=== PATIENT | female | born 1945 | race Caucasian/White ===

== ENCOUNTER → 2016-10-07 | Outpatient (CLI) | payer MEDICARE, BC | LOC: LAB 10:43 | DX: Z00.00 Encounter for general adult medical examination without abnormal findings (principal); I10 Essential (primary) hypertension; I48.92 Unspecified atrial flutter; I48.91 Unspecified atrial fibrillation ==

== ENCOUNTER → 2017-01-08 | Outpatient (CLI) | payer MEDICARE, BC | LOC: LAB 13:52 | DX: Z51.81 Encounter for therapeutic drug level monitoring (principal); Z79.01 Long term (current) use of anticoagulants; I48.91 Unspecified atrial fibrillation ==

== ENCOUNTER → 2017-03-02 | Outpatient (CLI) | payer MEDICARE, BC | LOC: LAB 10:52 | DX: Z51.81 Encounter for therapeutic drug level monitoring (principal); Z79.01 Long term (current) use of anticoagulants; I48.91 Unspecified atrial fibrillation ==

== ENCOUNTER → 2017-03-31 | Outpatient (CLI) | payer MEDICARE, BC | LOC: LAB 11:18 | DX: I48.91 Unspecified atrial fibrillation (principal); Z51.81 Encounter for therapeutic drug level monitoring; Z79.01 Long term (current) use of anticoagulants ==

== ENCOUNTER → 2017-06-15 | Outpatient (CLI) | payer MEDICARE, BC | LOC: LAB 12:10 | DX: I48.91 Unspecified atrial fibrillation (principal) ==

== ENCOUNTER → 2017-07-23 | Outpatient (CLI) | payer MEDICARE, BC ==
[2017-07-23 17:09] LABS: PROTHROMBIN TIME 23.6 SECONDS (9.0-12.0)
== END ==
LOC: LAB 16:39
PROVIDERS: Nurse Practitioner Family
DX: I48.91 Unspecified atrial fibrillation (principal); E03.9 Hypothyroidism, unspecified

== ENCOUNTER → 2017-10-28 | Outpatient (CLI) | payer MEDICARE, BC ==
[2017-10-28 10:38] LABS: EOS # 0.1 (0.04-0.40); EOS % 1.6 % (1.0-5.0); HEMATOCRIT 46.2 % (37.0-47.0); HEMOGLOBIN 14.7 g/dL (12.5-16.0); LYMPH# 1.6 (1.50-4.00); MEAN CELL VOLUME 91 fl (78-100); MEAN CORPUSCULAR HEMOGLOBIN 29 pg (27-31); MEAN CORPUSCULAR HGB CONC 32 g/dL (33-37); MEAN PLATELET VOLUME 11.6 fl (7.4-10.4); MONO # 0.5 (0.20-0.80); NEU # 2.7 (1.40-6.50); PLATELET COUNT 117 K/mm3 (130-400); RED BLOOD COUNT 5.06 M/mm3 (4.10-5.30); WHITE BLOOD COUNT 4.9 K/mm3 (4.8-10.8)
[2017-10-28 11:02] LABS: PROTHROMBIN TIME 35.4 SECONDS (9.0-12.0)
== END ==
LOC: LAB 09:52
PROVIDERS: Nurse Practitioner Family
DX: Z00.00 Encounter for general adult medical examination without abnormal findings (principal); I48.2 Chronic atrial fibrillation; I48.91 Unspecified atrial fibrillation; I10 Essential (primary) hypertension; E03.9 Hypothyroidism, unspecified

== ENCOUNTER → 2017-11-09 | Outpatient (CLI) | payer MEDICARE, BC | LOC: MAMMO 09:03 → RAD 09:15 → MAMMO 09:15 | DX: Z12.31 Encounter for screening mammogram for malignant neoplasm of breast (principal) ==

== ENCOUNTER → 2017-11-09 | Outpatient (CLI) | payer MEDICARE, BC ==
[2017-11-09 09:33] LABS: BUN/CREATININE RATIO 19.1 (6.0-26.0); CALCIUM 9.4 mg/dL (8.4-10.2); POTASSIUM 4.6 mmol/L (3.6-5.0); TOTAL BILIRUBIN 1.3 mg/dL (0.2-1.3); TOTAL PROTEIN 7.3 g/dL (6.3-8.2)
[2017-11-09 10:44] LABS: PROTHROMBIN TIME 17.5 SECONDS (9.0-12.0)
== END ==
LOC: LAB 09:04
PROVIDERS: Nurse Practitioner Family
DX: Z00.00 Encounter for general adult medical examination without abnormal findings (principal); I48.91 Unspecified atrial fibrillation; E03.9 Hypothyroidism, unspecified; I10 Essential (primary) hypertension

== ENCOUNTER → 2017-12-13 | Outpatient (CLI) | payer MEDICARE, BC ==
[2017-12-13 10:52] LABS: HEMATOCRIT 46.2 % (37.0-47.0); HEMOGLOBIN 14.9 g/dL (12.5-16.0); MEAN PLATELET VOLUME 11.1 fl (7.4-10.4); RED BLOOD COUNT 5.13 M/mm3 (4.10-5.30); RED CELL DISTRIBUTION WIDTH 15.4 % (11.5-14.5); WHITE BLOOD COUNT 5.1 K/mm3 (4.8-10.8)
[2017-12-13 11:53] LABS: PROTHROMBIN TIME 31.9 SECONDS (9.0-12.0)
== END ==
LOC: LAB 10:07
PROVIDERS: Nurse Practitioner Family
DX: I48.91 Unspecified atrial fibrillation (principal); D69.6 Thrombocytopenia, unspecified

== ENCOUNTER → 2018-01-26 | Outpatient (CLI) | payer MEDICARE, BC ==
[2018-01-26 13:18] LABS: PROTHROMBIN TIME 19.1 SECONDS (9.0-12.0)
== END ==
LOC: LAB 12:27
PROVIDERS: Nurse Practitioner Family
DX: I48.91 Unspecified atrial fibrillation (principal)

== ENCOUNTER → 2018-03-21 | Outpatient (CLI) | payer MEDICARE, BC ==
[2018-03-21 12:13] LABS: PROTHROMBIN TIME 33.7 SECONDS (9.0-12.0)
== END ==
LOC: LAB 10:57
PROVIDERS: Nurse Practitioner Family
DX: I48.91 Unspecified atrial fibrillation (principal)

== ENCOUNTER → 2018-05-02 | Outpatient (CLI) | payer MEDICARE, BC ==
[2018-05-02 16:07] LABS: BUN/CREATININE RATIO 28.8 (6.0-26.0); CALCIUM 8.9 mg/dL (8.4-10.2); POTASSIUM 4.4 mmol/L (3.6-5.0)
[2018-05-02 16:40] LABS: PROTHROMBIN TIME 29.6 SECONDS (9.0-12.0)
== END ==
LOC: LAB 14:31
PROVIDERS: Nurse Practitioner Family
DX: I10 Essential (primary) hypertension (principal); I07.1 Rheumatic tricuspid insufficiency

== ENCOUNTER → 2018-05-09 | Outpatient (CLI) | payer MEDICARE, BC ==
[2018-05-09 16:35] LABS: POTASSIUM 3.8 mmol/L (3.6-5.0)
[2018-05-09 17:04] LABS: PROTHROMBIN TIME 32.5 SECONDS (9.0-12.0)
== END ==
LOC: LAB 16:08
PROVIDERS: Nurse Practitioner Family
DX: I07.1 Rheumatic tricuspid insufficiency (principal); I10 Essential (primary) hypertension

== ENCOUNTER → 2018-05-26 | Outpatient (CLI) | payer MEDICARE, BC ==
[2018-05-26 14:32] LABS: PROTHROMBIN TIME 21.9 SECONDS (9.0-12.0)
== END ==
LOC: LAB 13:52
PROVIDERS: Physician Assistant
DX: I48.91 Unspecified atrial fibrillation (principal)

== ENCOUNTER → 2018-05-31 | Outpatient (CLI) | payer MEDICARE, BC ==
[2018-05-31 15:14] LABS: BASO # 0.1 (0.02-0.10); EOS # 0.1 (0.04-0.40); EOS % 2.2 % (1.0-5.0); HEMATOCRIT 44.8 % (37.0-47.0); HEMOGLOBIN 14.9 g/dL (12.5-16.0); LYMPH# 1.9 (1.50-4.00); MEAN CELL VOLUME 89 fl (78-100); MEAN CORPUSCULAR HEMOGLOBIN 30 pg (27-31); MEAN CORPUSCULAR HGB CONC 33 g/dL (33-37); MEAN PLATELET VOLUME 11.7 fl (7.4-10.4); MONO # 0.6 (0.20-0.80); NEU # 2.4 (1.40-6.50); PLATELET COUNT 185 K/mm3 (130-400); RED BLOOD COUNT 5.01 M/mm3 (4.10-5.30); RED CELL DISTRIBUTION WIDTH 14.2 % (11.5-14.5); WHITE BLOOD COUNT 5.1 K/mm3 (4.8-10.8)
[2018-05-31 15:37] LABS: CALCIUM 9.2 mg/dL (8.4-10.2); POTASSIUM 4.2 mmol/L (3.6-5.0)
[2018-05-31 15:42] LABS: URINE APPEARANCE CLEAR; URINE BILIRUBIN NEGATIVE (NEGATIVE); URINE BLOOD NEGATIVE (NEGATIVE); URINE COLOR YELLOW; URINE GLUCOSE NEGATIVE (NEGATIVE); URINE KETONE NEGATIVE (NEGATIVE); URINE LEUKOCYTE ESTERASE NEGATIVE (NEGATIVE); URINE NITRATE NEGATIVE (NEGATIVE); URINE PROTEIN(semi-quant) NEGATIVE (NEGATIVE); URINE UROBILINOGEN NORMAL (NORMAL); URINE WBC 0-1 /hpf (0-3)
== END ==
LOC: LAB 14:22
PROVIDERS: Nurse Practitioner Family
DX: R10.9 Unspecified abdominal pain (principal)

== ENCOUNTER → 2018-09-22 | Outpatient (CLI) | payer MEDICARE, BC ==
[2018-09-22 12:58] LABS: PROTHROMBIN TIME 31.3 SECONDS (9.0-12.0)
== END ==
LOC: LAB 11:37
PROVIDERS: Physician Assistant
DX: I48.91 Unspecified atrial fibrillation (principal)

== ENCOUNTER → 2018-10-05 | Outpatient (CLI) | payer MEDICARE, BC ==
[2018-10-05 15:52] LABS: PROTHROMBIN TIME 28.8 SECONDS (9.0-12.0)
== END ==
LOC: LAB 15:19
PROVIDERS: Physician Assistant
DX: I48.91 Unspecified atrial fibrillation (principal)

== ENCOUNTER → 2018-11-25 | Outpatient (CLI) | payer MEDICARE, BC ==
[2018-11-25 14:10] LABS: PROTHROMBIN TIME 28.4 SECONDS (9.0-12.0)
== END ==
LOC: LAB 13:19
PROVIDERS: Physician Assistant
DX: I48.91 Unspecified atrial fibrillation (principal)

== ENCOUNTER → 2019-01-13 | Outpatient (CLI) | payer MEDICARE, BC ==
[2019-01-13 15:48] LABS: CALCIUM 9.1 mg/dL (8.4-10.2); POTASSIUM 4.4 mmol/L (3.6-5.0); PROTHROMBIN TIME 16.5 SECONDS (9.0-12.0)
== END ==
LOC: LAB 14:55
PROVIDERS: Internal Medicine Cardiovascular Disease
DX: I48.2 Chronic atrial fibrillation (principal)

== ENCOUNTER → 2019-02-01 | Outpatient (CLI) | payer MEDICARE, BC | LOC: LAB 11:23 | PROVIDERS: Physician Assistant | DX: I48.91 Unspecified atrial fibrillation (principal) ==

== ENCOUNTER → 2019-05-25 | Outpatient (CLI) | payer MEDICARE, BC ==
[2019-05-25 12:13] LABS: PROTHROMBIN TIME 16.5 SECONDS (9.0-12.0)
== END ==
LOC: LAB 11:46
PROVIDERS: Physician Assistant
DX: I48.91 Unspecified atrial fibrillation (principal)

== ENCOUNTER → 2019-06-23 | Outpatient (CLI) | payer MEDICARE, BC ==
[2019-06-23 12:13] LABS: PROTHROMBIN TIME 26.5 SECONDS (9.0-12.0)
== END ==
LOC: LAB 11:46
PROVIDERS: Physician Assistant
DX: I48.91 Unspecified atrial fibrillation (principal)

== ENCOUNTER → 2019-08-28 | Outpatient (CLI) | payer MEDICARE, BC ==
[2019-08-28 10:45] LABS: PROTHROMBIN TIME 13.3 SECONDS (9.0-12.0)
== END ==
LOC: LAB 10:15
PROVIDERS: Physician Assistant
DX: I48.91 Unspecified atrial fibrillation (principal); Z79.01 Long term (current) use of anticoagulants

== ENCOUNTER → 2019-09-20 | Outpatient (CLI) | payer MEDICARE, BC ==
[2019-09-20 12:25] LABS: PROTHROMBIN TIME 24.6 SECONDS (9.0-12.0)
== END ==
LOC: LAB 11:53
PROVIDERS: Physician Assistant
DX: I48.91 Unspecified atrial fibrillation (principal); Z79.01 Long term (current) use of anticoagulants

== ENCOUNTER → 2019-10-17 | Outpatient (CLI) | payer MEDICARE, BC | LOC: MAMMO 11:30 | DX: Z12.31 Encounter for screening mammogram for malignant neoplasm of breast (principal) ==

== ENCOUNTER → 2019-11-01 | Outpatient (CLI) | payer MEDICARE, BC ==
[2019-11-01 11:52] LABS: ALBUMIN 4.1 g/dL (3.4-4.8); POTASSIUM 4.3 mmol/L (3.5-5.1)
[2019-11-01 11:53] LABS: CALCIUM 9.2 mg/dL (8.3-10.5); EOS # 0.1 (0.04-0.40); EOS % 1.6 % (1.0-5.0); HEMATOCRIT 47.2 % (37.0-47.0); HEMOGLOBIN 15.6 g/dL (12.5-16.0); LYMPH# 1.8 (1.50-4.00); MEAN CELL VOLUME 91 fl (78-100); MEAN CORPUSCULAR HEMOGLOBIN 30 pg (27-31); MEAN CORPUSCULAR HGB CONC 33 g/dL (33-37); MEAN PLATELET VOLUME 11.4 fl (7.4-10.4); MONO # 0.6 (0.20-0.80); NEU # 2.3 (1.40-6.50); PLATELET COUNT 155 K/mm3 (130-400); RED BLOOD COUNT 5.17 M/mm3 (4.10-5.30); RED CELL DISTRIBUTION WIDTH 14.2 % (11.5-14.5); WHITE BLOOD COUNT 4.9 K/mm3 (4.8-10.8)
[2019-11-01 11:54] LABS: PROTHROMBIN TIME 28.8 SECONDS (9.0-12.0)
[2019-11-01 11:55] LABS: TOTAL PROTEIN 7.1 g/dL (6.2-8.1)
[2019-11-01 11:57] LABS: TOTAL BILIRUBIN 0.8 mg/dL (0.2-1.2)
== END ==
LOC: LAB 11:22
PROVIDERS: Physician Assistant
DX: Z00.00 Encounter for general adult medical examination without abnormal findings (principal); E03.9 Hypothyroidism, unspecified; I48.91 Unspecified atrial fibrillation; I10 Essential (primary) hypertension; I07.1 Rheumatic tricuspid insufficiency

== ENCOUNTER → 2019-12-06 | Outpatient (CLI) | payer MEDICARE, BC ==
[2019-12-06 12:01] LABS: PROTHROMBIN TIME 21.8 SECONDS (9.0-12.0)
== END ==
LOC: RAD 09:35 → LAB 09:35
PROVIDERS: Physician Assistant
DX: M19.012 Primary osteoarthritis, left shoulder (principal)

== ENCOUNTER → 2020-01-23 | Outpatient (CLI) | payer MEDICARE, BC ==
[2020-01-23 13:50] LABS: PROTHROMBIN TIME 23.3 SECONDS (9.0-12.0)
== END ==
LOC: LAB 12:39
PROVIDERS: Physician Assistant
DX: I48.91 Unspecified atrial fibrillation (principal); Z79.01 Long term (current) use of anticoagulants

== ENCOUNTER 2020-03-13 13:00 | Outpatient (RCR) | payer MEDICARE, BC | END 2020-03-13 13:30 | LOC: PT | DX: M25.512 Pain in left shoulder (principal) ==

== ENCOUNTER → 2020-03-28 | Outpatient (CLI) | payer MEDICARE, BC ==
[2020-03-28 12:14] LABS: PROTHROMBIN TIME 23.3 SECONDS (9.0-12.0)
== END ==
LOC: LAB 11:41
PROVIDERS: Physician Assistant
DX: I48.91 Unspecified atrial fibrillation (principal); Z79.01 Long term (current) use of anticoagulants

== ENCOUNTER 2020-06-06 19:05 | Emergency (ER) | payer MEDICARE, BC ==
[~2020-06-06] VITALS: Ht 154.9 cm; Wt 113.6 kg
[2020-06-06] MEDS ORDERED: TIROSINT75 MC1 PO (20:06)
[2020-06-06] MEDS ORDERED: TOPROL XL100 MG PO (20:07)
[2020-06-06] MEDS ORDERED: XALATAN 2.5 ML2.5 ML OU (20:07)
[2020-06-06] MEDS ORDERED: ZESTRIL10 M1 PO (20:07)
[2020-06-06] MEDS ORDERED: LASIX20 M1 PO (20:08)
[2020-06-06] MEDS ORDERED: WARFARIN SODIUM5 MG PO ×2 (20:09)
[2020-06-06] MEDS ORDERED: CEPHALEXIN500 M2 PO (22:14)
[2020-06-06 22:20] VITALS: BP 157/79
== END 2020-06-06 22:25 | disposition home or self-care (01) ==
LOC: ED 19:05
DX: S61.412A Laceration without foreign body of left hand, initial encounter (principal); I10 Essential (primary) hypertension; I48.91 Unspecified atrial fibrillation; Z79.01 Long term (current) use of anticoagulants; W26.8XXA Contact with other sharp object(s), not elsewhere classified, initial encounter; Y92.009 Unspecified place in unspecified non-institutional (private) residence as the place of occurrence of the external cause
CPT/HCPCS: 90714

== ENCOUNTER → 2020-06-17 | Outpatient (CLI) | payer MEDICARE, BC ==
[2020-06-06 22:20] VITALS: BP 157/79
[~2020-06-17] MED LIST: CEPHALEXIN500 M2 PO; LASIX20 M1 PO; TIROSINT75 MC1 PO; TOPROL XL100 MG PO; WARFARIN SODIUM5 MG PO; XALATAN 2.5 ML2.5 ML OU; ZESTRIL10 M1 PO
== END ==
LOC: AMSURD 14:52
DX: Z48.02 Encounter for removal of sutures (principal)

== ENCOUNTER → 2020-06-17 | Outpatient (CLI) | payer MEDICARE, BC ==
[2020-06-06 22:20] VITALS: BP 157/79
[2020-06-17 15:25] LABS: PROTHROMBIN TIME 35.9 SECONDS (9.0-12.0)
== END ==
LOC: LAB 14:50
PROVIDERS: Physician Assistant
DX: I48.91 Unspecified atrial fibrillation (principal); Z79.01 Long term (current) use of anticoagulants

== ENCOUNTER → 2020-06-28 | Outpatient (CLI) | payer MEDICARE, BC ==
[2020-06-06 22:20] VITALS: BP 157/79
== END ==
LOC: LAB 08:50
PROVIDERS: Physician Assistant
DX: I48.91 Unspecified atrial fibrillation (principal); Z79.01 Long term (current) use of anticoagulants

== ENCOUNTER → 2020-09-03 | Outpatient (CLI) | payer MEDICARE, BC ==
[2020-09-03 11:00] LABS: PROTHROMBIN TIME 15.3 SECONDS (9.0-12.0)
== END ==
LOC: LAB 10:09
PROVIDERS: Physician Assistant
DX: I48.91 Unspecified atrial fibrillation (principal)

== ENCOUNTER → 2020-09-24 | Outpatient (CLI) | payer MEDICARE, BC ==
[2020-09-24 12:18] LABS: PROTHROMBIN TIME 29.5 SECONDS (9.0-12.0)
== END ==
LOC: LAB 11:20
PROVIDERS: Physician Assistant
DX: I48.91 Unspecified atrial fibrillation (principal)

== ENCOUNTER → 2020-11-25 | Outpatient (CLI) | payer MEDICARE, BC ==
[2020-11-25 12:49] LABS: PROTHROMBIN TIME 30.2 SECONDS (9.0-12.0)
== END ==
LOC: LAB 12:11
PROVIDERS: Physician Assistant
DX: I48.91 Unspecified atrial fibrillation (principal)

== ENCOUNTER → 2020-11-25 | Outpatient (CLI) | payer MEDICARE, BC | LOC: MAMMO 12:09 | DX: Z12.31 Encounter for screening mammogram for malignant neoplasm of breast (principal); N64.89 Other specified disorders of breast ==

== ENCOUNTER → 2020-12-05 | Outpatient (CLI) | payer MEDICARE, BC | LOC: MAMMO 12:08 | DX: R92.8 Other abnormal and inconclusive findings on diagnostic imaging of breast (principal) ==

== ENCOUNTER → 2021-02-18 | Outpatient (CLI) | payer MEDICARE, BC ==
[2021-02-18 09:51] LABS: BASO # 0.04 (0.02-0.10); EOS # 0.09 (0.04-0.40); EOS % 1.8 % (1.0-5.0); HEMATOCRIT 42.6 % (37.0-47.0); HEMOGLOBIN 14.2 g/dL (12.5-16.0); LYMPH# 1.42 (1.50-4.00); MEAN CELL VOLUME 90 fl (78-100); MEAN CORPUSCULAR HEMOGLOBIN 30 pg (27-31); MEAN CORPUSCULAR HGB CONC 33 g/dL (33-37); MEAN PLATELET VOLUME 11.1 fl (7.4-10.4); MONO # 0.55 (0.20-0.80); NEU # 2.81 (1.40-6.50); PLATELET COUNT 143 K/mm3 (130-400); RED BLOOD COUNT 4.74 M/mm3 (4.10-5.30); WHITE BLOOD COUNT 4.9 K/mm3 (4.8-10.8)
[2021-02-18 10:14] LABS: POTASSIUM 4.2 mmol/L (3.5-5.1)
[2021-02-18 10:15] LABS: ALBUMIN 3.8 g/dL (3.4-4.8); PROTHROMBIN TIME 24.6 SECONDS (9.0-12.0)
[2021-02-18 10:16] LABS: CALCIUM 8.8 mg/dL (8.3-10.5)
[2021-02-18 10:17] LABS: TOTAL PROTEIN 6.8 g/dL (6.2-8.1)
== END ==
LOC: LAB 09:25
PROVIDERS: Physician Assistant
DX: Z00.00 Encounter for general adult medical examination without abnormal findings (principal); E03.9 Hypothyroidism, unspecified; E78.5 Hyperlipidemia, unspecified; R73.9 Hyperglycemia, unspecified; I10 Essential (primary) hypertension; I48.91 Unspecified atrial fibrillation

== ENCOUNTER → 2021-04-24 | Outpatient (CLI) | payer MEDICARE, BC ==
[2021-04-24 12:23] LABS: PROTHROMBIN TIME 34.4 SECONDS (9.0-12.0)
== END ==
LOC: LAB 10:51
PROVIDERS: Physician Assistant
DX: I48.91 Unspecified atrial fibrillation (principal)

== ENCOUNTER → 2021-05-28 | Outpatient (CLI) | payer MEDICARE, BC ==
[2021-05-28 10:47] LABS: PROTHROMBIN TIME 21.3 SECONDS (9.0-12.0)
== END ==
LOC: LAB 09:47
PROVIDERS: Physician Assistant
DX: I48.91 Unspecified atrial fibrillation (principal)

== ENCOUNTER → 2021-07-25 | Outpatient (CLI) | payer MEDICARE, BC ==
[2021-07-25 15:37] LABS: PROTHROMBIN TIME 21.3 SECONDS (9.0-12.0)
== END ==
LOC: LAB 15:11
PROVIDERS: Physician Assistant
DX: I48.91 Unspecified atrial fibrillation (principal)

== ENCOUNTER → 2021-09-29 | Outpatient (CLI) | payer MEDICARE, BC ==
[2021-09-29 12:06] LABS: PROTHROMBIN TIME 19.8 SECONDS (9.0-12.0)
== END ==
LOC: LAB 10:55
PROVIDERS: Physician Assistant
DX: I48.91 Unspecified atrial fibrillation (principal)

== ENCOUNTER → 2022-01-12 | Outpatient (CLI) | payer MEDICARE, BC ==
[2022-01-12 12:42] LABS: PROTHROMBIN TIME 20.4 SECONDS (9.0-12.0)
== END ==
LOC: LAB 11:19
PROVIDERS: Physician Assistant
DX: I48.91 Unspecified atrial fibrillation (principal)

== ENCOUNTER → 2022-04-13 | Outpatient (CLI) | payer MEDICARE, BC ==
[2022-04-13 12:39] LABS: BASO # 0.03 K/mm3 (0.02-0.10); EOS # 0.23 K/mm3 (0.04-0.40); EOS % 3.4 % (1.0-5.0); HEMATOCRIT 39.4 % (37.0-47.0); LYMPH# 1.14 K/mm3 (1.50-4.00); MEAN CELL VOLUME 92 fl (78-100); MEAN CORPUSCULAR HEMOGLOBIN 30 pg (27-31); MEAN CORPUSCULAR HGB CONC 33 g/dL (33-37); MEAN PLATELET VOLUME 11.9 fl (7.4-10.4); MONO # 0.64 K/mm3 (0.20-0.80); NEU # 4.61 K/mm3 (1.40-6.50); PLATELET COUNT 218 K/mm3 (130-400); RED BLOOD COUNT 4.29 M/mm3 (4.10-5.30); WHITE BLOOD COUNT 6.7 K/mm3 (4.8-10.8)
[2022-04-13 13:53] LABS: ALBUMIN 3.5 g/dL (3.4-4.8); POTASSIUM 3.3 mmol/L (3.5-5.1)
[2022-04-13 13:54] LABS: CALCIUM 9.6 mg/dL (8.3-10.5)
[2022-04-13 13:56] LABS: TOTAL PROTEIN 7.3 g/dL (6.2-8.1)
[2022-04-13 13:57] LABS: TOTAL BILIRUBIN 0.8 mg/dL (0.2-1.2)
== END ==
LOC: LAB 04-09 10:45
PROVIDERS: Physician Assistant
DX: Z13.220 Encounter for screening for lipoid disorders (principal); Z00.00 Encounter for general adult medical examination without abnormal findings; Z13.1 Encounter for screening for diabetes mellitus; I48.91 Unspecified atrial fibrillation; E03.9 Hypothyroidism, unspecified; K90.9 Intestinal malabsorption, unspecified; I10 Essential (primary) hypertension; I07.9 Rheumatic tricuspid valve disease, unspecified; R10.9 Unspecified abdominal pain; Z86.79 Personal history of other diseases of the circulatory system; Z79.01 Long term (current) use of anticoagulants

== ENCOUNTER → 2022-04-17 | Outpatient (CLI) | payer MEDICARE, BC ==
[2022-04-17 15:18] LABS: PROTHROMBIN TIME 48.5 SECONDS (9.0-12.0)
== END ==
LOC: LAB 13:21
PROVIDERS: Physician Assistant
DX: Z00.00 Encounter for general adult medical examination without abnormal findings (principal); Z13.220 Encounter for screening for lipoid disorders; Z13.1 Encounter for screening for diabetes mellitus; E03.9 Hypothyroidism, unspecified; I48.91 Unspecified atrial fibrillation; I10 Essential (primary) hypertension; I07.1 Rheumatic tricuspid insufficiency; K90.9 Intestinal malabsorption, unspecified; R10.9 Unspecified abdominal pain; Z79.01 Long term (current) use of anticoagulants; Z86.79 Personal history of other diseases of the circulatory system

== ENCOUNTER 2022-05-07 10:30 | Outpatient (RCR) | payer MEDICARE, BC | END 2022-06-03 | disposition home or self-care (01) | LOC: PT | DX: R26.89 Other abnormalities of gait and mobility (principal) ==

== ENCOUNTER → 2022-05-08 | Outpatient (CLI) | payer MEDICARE, BC | LOC: LAB 14:07 | PROVIDERS: Physician Assistant | DX: Z00.00 Encounter for general adult medical examination without abnormal findings (principal); Z13.220 Encounter for screening for lipoid disorders; Z13.1 Encounter for screening for diabetes mellitus; E03.9 Hypothyroidism, unspecified; I48.91 Unspecified atrial fibrillation; I10 Essential (primary) hypertension; I07.1 Rheumatic tricuspid insufficiency; K90.9 Intestinal malabsorption, unspecified; R10.9 Unspecified abdominal pain; Z79.01 Long term (current) use of anticoagulants; Z86.79 Personal history of other diseases of the circulatory system ==

== ENCOUNTER → 2022-06-04 | Outpatient (CLI) | payer MEDICARE, BC ==
[2022-06-04 10:36] LABS: PROTHROMBIN TIME 11.5 SECONDS (9.0-12.0)
== END ==
LOC: LAB 10:03
PROVIDERS: Physician Assistant
DX: Z00.00 Encounter for general adult medical examination without abnormal findings (principal); Z13.220 Encounter for screening for lipoid disorders; Z13.1 Encounter for screening for diabetes mellitus; E03.9 Hypothyroidism, unspecified; I48.91 Unspecified atrial fibrillation; Z79.01 Long term (current) use of anticoagulants; Z86.79 Personal history of other diseases of the circulatory system; I10 Essential (primary) hypertension; I07.1 Rheumatic tricuspid insufficiency; K90.9 Intestinal malabsorption, unspecified; R10.9 Unspecified abdominal pain

== ENCOUNTER → 2022-06-18 | Outpatient (CLI) | payer MEDICARE, BC ==
[2022-06-18 13:38] LABS: PROTHROMBIN TIME 12.1 SECONDS (9.0-12.0)
== END ==
LOC: LAB 13:07
PROVIDERS: Physician Assistant
DX: Z00.00 Encounter for general adult medical examination without abnormal findings (principal); Z13.820 Encounter for screening for osteoporosis; Z13.1 Encounter for screening for diabetes mellitus; E03.9 Hypothyroidism, unspecified; I48.91 Unspecified atrial fibrillation; I07.1 Rheumatic tricuspid insufficiency; I10 Essential (primary) hypertension; K90.9 Intestinal malabsorption, unspecified; R10.9 Unspecified abdominal pain; Z79.01 Long term (current) use of anticoagulants; Z86.79 Personal history of other diseases of the circulatory system

== ENCOUNTER → 2022-10-23 | Outpatient (CLI) | payer MEDICARE, BC ==
[2022-10-23 15:05] LABS: PROTHROMBIN TIME 21.5 SECONDS (9.0-12.0)
== END ==
LOC: LAB 14:27
PROVIDERS: Physician Assistant
DX: I48.91 Unspecified atrial fibrillation (principal)

== ENCOUNTER → 2023-07-15 | Outpatient (CLI) | payer MEDICARE, BC ==
[~2023-07-15] MED LIST changes: +ALBUTEROL SULF6.7 GM IH; +AZITHROMYCIN 500MGPK PO; +ECOTRIN325 M2 PO; +MEDI-FIRST ASP325 MG; +NATURE'S BLEND1 T11 PO; +NATURE'S BLEND500 M1 PO; +PREDNISONE20 MG PO; +WARFARIN SODIUM6 MG PO
== END ==
LOC: MAMMO 09:55
DX: Z12.31 Encounter for screening mammogram for malignant neoplasm of breast (principal)

== ENCOUNTER → 2023-11-03 | Outpatient (CLI) | payer MEDICARE, BC ==
[2023-11-03 14:00] LABS: PROTHROMBIN TIME 33.8 SECONDS (9.0-12.0)
== END ==
LOC: LAB 13:23
PROVIDERS: Physician Assistant
DX: I48.91 Unspecified atrial fibrillation (principal)

== ENCOUNTER → 2023-11-25 | Outpatient (CLI) | payer MEDICARE, BC ==
[2023-11-25 16:42] LABS: PROTHROMBIN TIME 24.8 SECONDS (9.0-12.0)
== END ==
LOC: LAB 16:17
PROVIDERS: Physician Assistant
DX: I48.91 Unspecified atrial fibrillation (principal)

== ENCOUNTER → 2023-12-28 | Outpatient (CLI) | payer MEDICARE, BC ==
[2023-12-28 15:56] LABS: PROTHROMBIN TIME 16.8 SECONDS (9.0-12.0)
== END ==
LOC: LAB 14:59
PROVIDERS: Physician Assistant
DX: I48.91 Unspecified atrial fibrillation (principal)

== ENCOUNTER → 2024-03-23 | Outpatient (CLI) | payer MEDICARE, BC ==
[2024-03-23 13:17] LABS: PROTHROMBIN TIME 24.2 SECONDS (9.0-12.0)
== END ==
LOC: LAB 12:36
PROVIDERS: Physician Assistant
DX: I48.91 Unspecified atrial fibrillation (principal)

== ENCOUNTER → 2024-06-08 | Outpatient (CLI) | payer MEDICARE, BC ==
[2024-06-08 14:20] LABS: BASO # 0.02 K/mm3 (0.02-0.10); EOS # 0.14 K/mm3 (0.04-0.40); EOS % 2.3 % (1.0-5.0); HEMATOCRIT 47.7 % (37.0-47.0); HEMOGLOBIN 15.1 g/dL (12.5-16.0); LYMPH# 1.56 K/mm3 (1.50-4.00); MEAN CELL VOLUME 98 fl (78-100); MEAN CORPUSCULAR HEMOGLOBIN 31 pg (27-31); MEAN CORPUSCULAR HGB CONC 32 g/dL (33-37); MEAN PLATELET VOLUME 11.8 fl (7.4-10.4); MONO # 0.55 K/mm3 (0.20-0.80); NEU # 3.88 K/mm3 (1.40-6.50); PLATELET COUNT 149 K/mm3 (130-400); RED BLOOD COUNT 4.89 M/mm3 (4.10-5.30); RED CELL DISTRIBUTION WIDTH 14.1 % (11.5-14.5); WHITE BLOOD COUNT 6.2 K/mm3 (4.8-10.8)
[2024-06-08 14:58] LABS: ALBUMIN 3.9 g/dL (3.4-4.8)
[2024-06-08 14:59] LABS: SODIUM 143 mmol/L (136-145)
[2024-06-08 15:00] LABS: CALCIUM 9.2 mg/dL (8.3-10.5)
[2024-06-08 15:01] LABS: GLUCOSE 84 mg/dL (65-105)
[2024-06-08 15:02] LABS: CARBON DIOXIDE 22 mmol/L (23-31)
[2024-06-08 15:04] LABS: PARTIAL THROMBOPLASTIN TIME 29.5 SECONDS (21.0-32.0); PROTHROMBIN TIME 15.7 SECONDS (9.0-12.0)
[2024-06-08 15:06] LABS: AST-SGOT 17 U/L (5-34)
[2024-06-08 15:07] LABS: ALT/SGPT 13 U/L (0-55)
== END ==
LOC: LAB 12:51
PROVIDERS: Physician Assistant
DX: Z01.818 Encounter for other preprocedural examination (principal); I48.91 Unspecified atrial fibrillation; E03.9 Hypothyroidism, unspecified

== ENCOUNTER 2024-08-08 13:00 | Outpatient (RCR) | payer MEDICARE, BC | END 2024-09-04 15:22 | disposition home or self-care (01) | LOC: OPPGERO 13:00 | DX: Z01.89 Encounter for other specified special examinations (principal) | CPT/HCPCS: C7903; G0410 ==

== ENCOUNTER 2024-09-04 15:27 | Outpatient (RCR) | payer MEDICARE, BC | END 2024-10-05 16:35 | LOC: OPPGERO 15:27 | DX: Z01.89 Encounter for other specified special examinations (principal) | CPT/HCPCS: C7903; G0410 ==

== ENCOUNTER 2024-10-06 09:00 | Outpatient (RCR) | payer MEDICARE, BC | END 2024-11-03 13:05 | LOC: OPPGERO 09:00 | DX: Z01.89 Encounter for other specified special examinations (principal) | CPT/HCPCS: G0410 ==

== ENCOUNTER → 2024-10-18 | Outpatient (CLI) | payer MEDICARE, BC ==
[2024-10-18 14:12] LABS: BASO # 0.03 K/mm3 (0.02-0.10); EOS # 0.09 K/mm3 (0.04-0.40); EOS % 1.7 % (1.0-5.0); HEMATOCRIT 45.1 % (37.0-47.0); HEMOGLOBIN 14.7 g/dL (12.5-16.0); LYMPH# 1.45 K/mm3 (1.50-4.00); MEAN CELL VOLUME 95 fl (78-100); MEAN CORPUSCULAR HEMOGLOBIN 31 pg (27-31); MEAN CORPUSCULAR HGB CONC 33 g/dL (33-37); MEAN PLATELET VOLUME 10.9 fl (7.4-10.4); MONO # 0.56 K/mm3 (0.20-0.80); NEU # 3.23 K/mm3 (1.40-6.50); PLATELET COUNT 157 K/mm3 (130-400); RED BLOOD COUNT 4.73 M/mm3 (4.10-5.30); RED CELL DISTRIBUTION WIDTH 13.7 % (11.5-14.5); WHITE BLOOD COUNT 5.4 K/mm3 (4.8-10.8)
[2024-10-18 14:21] LABS: ALBUMIN 4.1 g/dL (3.4-4.8)
[2024-10-18 14:22] LABS: CALCIUM 9.3 mg/dL (8.3-10.5)
[2024-10-18 14:23] LABS: TOTAL PROTEIN 7.3 g/dL (6.2-8.1)
[2024-10-18 14:25] LABS: TOTAL BILIRUBIN 1.2 mg/dL (0.2-1.2)
[2024-10-18 14:30] LABS: PROTHROMBIN TIME 33.7 SECONDS (9.0-12.0)
== END ==
LOC: LAB 13:55
PROVIDERS: Physician Assistant
DX: Z11.59 Encounter for screening for other viral diseases (principal); Z13.1 Encounter for screening for diabetes mellitus; E03.9 Hypothyroidism, unspecified; I48.91 Unspecified atrial fibrillation; I10 Essential (primary) hypertension; E78.5 Hyperlipidemia, unspecified; K90.9 Intestinal malabsorption, unspecified